=== PATIENT | male | born 1975 | race Caucasian/White ===

== ENCOUNTER 2016-07-19 09:34 | Emergency (ER) | payer OTHER ==
[~2016-07-19] VITALS: Ht 177.8 cm; Wt 100.0 kg
[~2016-07-19 09:34] MED LIST: Z.0.NO CURRENT MEDS
[2016-07-19 09:35] VITALS: BP 157/98; PULSE 87; RESP 16; TEMP 98.4; O2SAT 99
[2016-07-19] MEDS ORDERED: SODIUM CHLORIDE 0.9% FLUSH 10 ML FLUSH IV FLUSH PRN (10:00)
--- NOTE | 2016-07-19 10:01 | PD ---
HPI Chief Complaint: Flank/Kidney Pain Time Seen by Provider: 09:51 Travel History International Travel<30 days: No Contact w/Intl Traveler<30days: No Traveled to known affect area: No History of Present Illness HPI This is a 41-year-old male who presents to the emergency department with 2 days of intermittent left-sided flank pain, that comes for about 30-40 minutes and then subsides. When it comes he feels very lightheaded and nauseous, and it radiates into his testicle. He's never had pain like this before. He denies any associated fevers, chills, vomiting, dysuria or hematuria. He says he has a history of musculoskeletal back pain but this feels different because it radiates into his testicle. He does take calcium supplements every evening. He also has been playing outside with his kids in the heat every day and drank a large amount of alcohol over the weekend. PFSH Past Medical History Hepatitis: Yes (HEP A, TREATED 8 YEARS AGO ) Tetanus Vaccination: Unknown Influenza Vaccination: Yes Past Surgical History Surgical History: No Previous Surgery Social History Alcohol Use: Yes (weekends ) Tobacco Use: No Substance Use: No Allergies-Medications (Allergen,Severity, Reaction): Coded Allergies: No Known Allergies (Unverified , 07/19/16) Reported Meds & Prescriptions Reported Meds & Active Scripts Active Review of Systems Except as stated in HPI: all other systems reviewed are Neg Physical Exam Narrative GENERAL:Well appearing, no acute distress SKIN: Focused skin assessment warm and dry. HEAD: Atraumatic. Normocephalic. EYES: Pupils equal and round. No injection or drainage. ENT: Moist mucous membranes NECK: Trachea midline. CARDIOVASCULAR: Regular rate and rhythm. No murmur appreciated. RESPIRATORY: Clear to auscultation. Breath sounds equal bilaterally. GASTROINTESTINAL: Abdomen soft, mildly tender to palpation in the left upper and left lower quadrants with no rebound or guarding. : No CVA tenderness. MUSCULOSKELETAL: No obvious deformities. NEUROLOGICAL: Awake and alert. No obvious cranial nerve deficits. Moving all extremities. PSYCHIATRIC: Appropriate mood and affect; insight and judgment normal. Data Data Last Documented VS Vital Signs Date Time Temp Pulse Resp B/P Pulse Ox O2 Delivery O2 Flow Rate FiO2 07/19/16 10:10 99 Room Air 07/19/16 09:47 18 07/19/16 09:35 98.4 87 157/98 Orders Complete Blood Count With Diff (07/19/16 09:59) Comprehensive Metabolic Panel (07/19/16 09:59) Urinalysis - C+S If Indicated (07/19/16 09:59) Ct Abd/Pel W/O Iv Contrast (07/19/16 09:59) Iv Access Insert/Monitor (07/19/16 09:59) Ecg Monitoring (07/19/16 09:59) Oximetry (07/19/16 09:59) Sodium Chloride 0.9% Flush (Ns Flush) (07/19/16 10:00) Labs Laboratory Tests Test 07/19/16 10:05 White Blood Count 8.9 TH/MM3 Red Blood Count 5.59 MIL/MM3 Hemoglobin 16.4 GM/DL Hematocrit 46.8 % Mean Corpuscular Volume 83.7 FL Mean Corpuscular Hemoglobin 29.3 PG Mean Corpuscular Hemoglobin 35.0 % Concent Red Cell Distribution Width 12.9 % Platelet Count 213 TH/MM3 Mean Platelet Volume 8.4 FL Neutrophils (%) (Auto) 49.4 % Lymphocytes (%) (Auto) 38.9 % Monocytes (%) (Auto) 9.0 % Eosinophils (%) (Auto) 2.3 % Basophils (%) (Auto) 0.4 % Neutrophils # (Auto) 4.4 TH/MM3 Lymphocytes # (Auto) 3.5 TH/MM3 Monocytes # (Auto) 0.8 TH/MM3 Eosinophils # (Auto) 0.2 TH/MM3 Basophils # (Auto) 0.0 TH/MM3 CBC Comment AUTO DIFF Differential Comment AUTO DIFF CONFIRMED Urine Color YELLOW Urine Turbidity CLEAR Urine pH 5.5 Urine Specific [place] 1.023 Urine Protein NEG mg/dL Urine Glucose (UA) NEG mg/dL Urine Ketones NEG mg/dL Urine Occult Blood MOD Urine Nitrite NEG Urine Bilirubin NEG Urine Urobilinogen LESS THAN 2.0 MG/DL Urine Leukocyte Esterase NEG Urine RBC 22 /hpf Urine WBC 2 /hpf Urine Squamous Epithelial <1 /hpf Cells Urine Bacteria RARE /hpf Urine Mucus FEW /lpf Microscopic Urinalysis Comment CULT NOT INDICATED Sodium Level 136 MEQ/L Potassium Level 4.2 MEQ/L Chloride Level 104 MEQ/L Carbon Dioxide Level 28.6 MEQ/L Anion Gap 3 MEQ/L Blood Urea Nitrogen 15 MG/DL Creatinine 0.92 MG/DL Estimat Glomerular Filtration 92 ML/MIN Rate Random Glucose 89 MG/DL Calcium Level 9.2 MG/DL Total Bilirubin 0.4 MG/DL Aspartate Amino Transf 22 U/L (AST/SGOT) Alanine Aminotransferase 38 U/L (ALT/SGPT) Alkaline Phosphatase 95 U/L Total Protein 7.3 GM/DL Albumin 4.2 GM/DL [facility] Medical Decision Making Medical Screen Exam Complete: Yes Emergency Medical Condition: Yes Interpretation(s) No leukocytosis Electrolytes are reassuring Urinalysis: Blood in the urine Last 24 hours Impressions Abdomen/Pelvis CT 07/19/16 0959 Signed Impressions: Service Date/Time: , July 19, 2016 11:03 - CONCLUSION: 1. 3 mm distal left ureteral calculus. Minimal left hydroureter. 2. 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 Wesley Del Cid MD Differential Diagnosis Nephrolithiasis, obstructive nephropathy, pyelonephritis, musculoskeletal back pain Narrative Course This is a 41-year-old male who presents to the emergency department with left- sided flank pain. He takes calcium supplementation every night. Patient was placed on a monitor and an IV was established. Labs demonstrate no leukocytosis. Urinalysis demonstrates blood. CT demonstrates a 3 mm stone at the UVJ. 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 I instructed him to discontinue calcium supplementation. He was discharged with pain control and urology referral as needed. Diagnosis Primary Impression: Nephrolithiasis Referrals: Taqueria Linares MD Patient Instructions: General Instructions Additional Instructions: If you develop severe pain, inability to eat or drink, or fever return to the emergency department. Use a strainer to try to catch your stone. Take Lortab as needed for pain, and continue taking zofran as needed for nausea. Follow up with urology as soon as possible. Med/Other Pt SpecificInfo: Prescription(s) given Scripts Hydrocodone-Acetaminophen (Lortab)5-325 Mg Tab1 Tab PO Q6H PRN (PAIN) #7 TAB Ref 0 Prov:Rocio Ortega MD 07/19/16 Disposition: 01 DISCHARGE HOME Condition: Stable Rocio Ortega MD Jul 19, 2016 10:01
[2016-07-19 10:10] VITALS: O2SAT 99
[2016-07-19 10:17] LABS: AUTOMATED NEUTROPHIL # 4.4 TH/MM3 (1.8-7.7); BASOPHIL % 0.4 % (0.0-2.0); EOSINOPHIL # 0.2 TH/MM3 (0-0.4); EOSINOPHIL % 2.3 % (0.0-4.0); HEMATOCRIT 46.8 % (39.0-51.0); LYMPH % 38.9 % (9.0-44.0); LYMPHOCYTE # 3.5 TH/MM3 (1.0-4.8); MEAN CELL VOLUME 83.7 FL (80.0-100.0); MEAN CORPUSCULAR HEMOGLOBIN 29.3 PG (27.0-34.0); NEUT % 49.4 % (16.0-70.0); PLATELET COUNT 213 TH/MM3 (150-450); RED BLOOD COUNT 5.59 MIL/MM3 (4.50-5.90); RED CELL DISTRIBUTION WIDTH 12.9 % (11.6-17.2); WHITE BLOOD COUNT 8.9 TH/MM3 (4.0-11.0)
[2016-07-19 10:19] LABS: HEMO FLAGS AUTO DIFF
[2016-07-19 10:20] LABS: BACTERIA, URINE RARE /hpf; BLOOD, URINE MOD (NEG); COMMENT (UR) CULT NOT INDICATED; CULTURE IF INDICATED CULT NOT INDICATED; GLUCOSE,URINE NEG (NEG); KETONE, URINE NEG (NEG); MUCUS URINE FEW /lpf (OCC); NITRITE,URINE NEG (NEG); PH, URINE 5.5 (5.0-8.5); SQUAMOUS EPITHELIAL CELL URINE <1 /hpf (0-5); URINE COLOR YELLOW (YELLW/STRAW)
[2016-07-19 10:49] LABS: ALT (GPT) 38 U/L (12-78); ANION GAP 3 MEQ/L (5-15); AST (GOT) 22 U/L (15-37); BICARBONATE 28.6 MEQ/L (21.0-32.0); BLOOD UREA NITROGEN 15 MG/DL (7-18); CHLORIDE 104 MEQ/L (98-107); GLOMERULAR FILTRATION RATE 92 ML/MIN (>89); POTASSIUM 4.2 MEQ/L (3.5-5.1); SODIUM (NA) 136 MEQ/L (136-145)
[2016-07-19 10:50] LABS: SCAN/DIFF AUTO DIFF CONFIRMED
[2016-07-19 10:51] LABS: ALKALINE PHOSPHATASE 95 U/L (45-117); TOTAL BILIRUBIN ADULT 0.4 MG/DL (0.2-1.0)
--- NOTE | 2016-07-19 11:36 | RADRPT ---
EXAM DATE/TIME: 07/19/2016 11:03 [facility] COMPARISON: No previous studies available for comparison. INDICATIONS : Left side abdomen pain,painful urination. ORAL CONTRAST: No oral contrast ingested. RADIATION DOSE: 11.77 CTDIvol (mGy) MEDICAL HISTORY : Hepatitis A. SURGICAL HISTORY : None. ENCOUNTER: Initial ACUITY: 2 days PAIN SCALE: 3/10 LOCATION: Left Abdomen TECHNIQUE: Volumetric scanning of the abdomen and pelvis was performed. Using automated exposure control and ad justment of the mA and/or kV according to patient size, radiation dose was kept as low as reasonably achievable to obtain optimal diagnostic quality images. FINDINGS: LOWER LUNGS: The visualized lower lungs are clear. LIVER: Homogeneous density without lesion. There is no dilation of the biliary tree. No calcified gallston es. SPLEEN: Normal size without lesion. PANCREAS: Within normal limits. KIDNEYS: 3 mm calculus in the distal left ureter 1 cm proximal to the ureterovesical junction. Minimal left hy droureter. No evidence hydronephrosis. No other calculi identified. Kidneys within normal limits. ADRENAL GLANDS: Within normal limits. VASCULAR: There is no aortic aneurysm. BOWEL/MESENTERY: The stomach, small bowel, and colon demonstrate no acute abnormality. There is no free intraperitone al air or fluid. ABDOMINAL WALL: Within normal limits. RETROPERITONEUM: There is no lymphadenopathy. BLADDER: No wall thickening or mass. REPRODUCTIVE: Within normal limits. INGUINAL: There is no lymphadenopathy or hernia. MUSCULOSKELETAL: Minimal osteoarthritic findings of the hips. CONCLUSION: 1. 3 mm distal left ureteral calculus. Minimal left hydroureter. 2. 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 Wesley Del Cid MD on July 19, 2016 at 11:30 Board Certified Radiologist. This report was verified electronically.
[2016-07-19] MEDS ORDERED: HYDR-3533 PO (11:55)
[2016-07-19 12:08] VITALS: BP 137/90; PULSE 89; RESP 16; TEMP 98.4; O2SAT 99
== END 2016-07-19 12:09 | disposition home or self-care (01) ==
LOC: NEPD 09:34
DX: N20.0 Calculus of kidney (principal); N50.812 Left testicular pain; R42 Dizziness and giddiness; R11.0 Nausea
CPT/HCPCS: 74176; 80053; 81001; 85025; 99284